=== PATIENT | female | born 1990 | race Caucasian/White ===

== ENCOUNTER 2016-10-09 14:36 | Emergency (ER) | payer OTHER ==
[2016-10-09] MEDS ORDERED: Sodium Chloride 0.9% 1,000 ML IV ONE (14:50)
[2016-10-09] MEDS ORDERED: Ondansetron 4 MG/2 ML SDV IVPUSH ONE (14:59)
[2016-10-09 15:23] LABS: CHLORIDE,CL 106 mmol/L (98-110); SODIUM,NA 137 mmol/L (136-146)
--- NOTE | 2016-10-09 16:00 | EDM.PDOC ---
ED HPI GENERAL MEDICAL PROBLEM - General Chief Complaint: General Stated Complaint: VOMITING,DIARRHEA,ABDOMINAL PAIN Time Seen by Provider: 10/09/16 14:45 Source of Information: Reports: Patient History Limitations: Reports: No Limitations - History of Present Illness INITIAL COMMENTS - FREE TEXT/NARRATIVE: History of present illness: [26 year-old female comes in complaining of right sided upper quadrant pain. Patient indicates that she has a history of gallstones and now she has been running a fever, had nausea, vomiting and diarrhea.] Review of systems: As per history of present illness and below otherwise all systems reviewed and negative. Past medical history: As per history of present illness and as reviewed below otherwise noncontributory. Surgical history: As per history of present illness and as reviewed below otherwise noncontributory. Social history: No reported history of drug or alcohol abuse. Family history: As per history of present illness and as reviewed below otherwise noncontributory. Physical exam: HEENT: Atraumatic, normocephalic, pupils reactive, negative for conjunctival pallor or scleral icterus, mucous membranes moist, throat clear, neck supple, nontender, trachea midline. Lungs: Clear to auscultation, breath sounds equal bilaterally, chest nontender. Heart: S1S2, regular, negative for clicks, rubs, or JVD. Abdomen: Soft, nondistended, with a mild amount of tenderness and guarding noted to right upper quadrant along the diaphragmatic border. Negative for masses or hepatosplenomegaly. Negative for costovertebral tenderness. Pelvis: Stable nontender. Genitourinary: Deferred. Rectal: Deferred. Extremities: Atraumatic, negative for cords or calf pain. Neurovascular unremarkable. Neuro: Awake, alert, oriented. Cranial nerves II through XII unremarkable. Cerebellum unremarkable. Motor and sensory unremarkable throughout. Exam nonfocal. Ultrasound obtained that showed mild cholecystitis with stones without obstruction. Dr. Dunn consulted indicated that in light of the patient's stable condition he recommended antibiotics pain management and follow-up in the office. Diagnostics: [CBC, CMP, lipase, amylase, gallbladder ultrasound] Therapeutics: [IV fluid, morphine] Impression: [Cholecystitis] Plan: [Cipro, tramadol, follow-up surgery] Definitive disposition and diagnosis as appropriate pending reevaluation and review of above. 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: - Infectious Disease History Infectious Disease History: Reports: Chicken Pox - Past Surgical History HEENT Surgical History: Reports: Oral Surgery, Tonsillectomy Dermatological Surgical History: Reports: Other (See Below) Social & Family History - Family History HEENT: Reports: Impaired Vision Cardiac: Reports: Hypertension, [place] Respiratory: Reports: Asthma : Reports: Dialysis OBGYN: Reports: Endometriosis, Musculoskeletal: Reports: Arthritis, Fibromyalgia Endocrine/Metabolic: Reports: Diabetes, Type I Oncologic: Reports: Lung - Tobacco Use Smoking Status *Q: Never Smoker Second Hand Smoke Exposure: No - Caffeine Use Caffeine Use: Reports: Coffee - Recreational Drug Use Recreational Drug Use: No ED ROS GENERAL - Review of Systems Review Of Systems: See Below (See history of present illness) ED EXAM, GENERAL - Physical Exam Exam: See Below (History of present illness) Course - Vital Signs Last Recorded V/S: Last Vital Signs Temp 36.8 C 10/09/16 17:36 Pulse 95 10/09/16 17:36 Resp 18 10/09/16 17:36 BP 134/66 10/09/16 17:36 Pulse Ox 97 10/09/16 17:36 - Orders/Labs/Meds Orders: Active Orders 24 hr Category Date Time Status Gallbladder [Abdomen Ltd] [US] Stat Exams 10/09/16 16:00 Taken UA W/MICROSCOPIC [URIN] Stat Lab 10/09/16 14:50 Uncollected Labs: Laboratory Tests 10/09/16 10/09/16 10/09/16 Range/Units 14:55 14:55 14:55 WBC 7.23 (4.0-11.0) K/uL RBC 4.70 (4.30-5.90) M/uL Hgb 13.7 (12.0-16.0) g/dL Hct 42.1 (36.0-46.0) % MCV 89.6 (80.0-98.0) fL MCH 29.1 (27.0-32.0) pg MCHC 32.5 (31.0-37.0) g/dL RDW Std Deviation 42.5 (28.0-62.0) fl RDW Coeff of Luis Angel 13 (11.0-15.0) % Plt Count 199 (150-400) K/uL MPV 9.40 (7.40-12.00) fL Neut % (Auto) 87.7 H (48.0-80.0) % Lymph % (Auto) 7.5 L (16.0-40.0) % Hoke % (Auto) 4.3 (0.0-15.0) % Eos % (Auto) 0.4 (0.0-7.0) % Baso % (Auto) 0.1 (0.0-1.5) % Neut # (Auto) 6.3 H (1.4-5.7) K/uL Lymph # (Auto) 0.5 L (0.6-2.4) K/uL Hoke # (Auto) 0.3 (0.0-0.8) K/uL Eos # (Auto) 0.0 (0.0-0.7) K/uL Baso # (Auto) 0.0 (0.0-0.1) K/uL Nucleated RBC % 0.0 /100WBC Nucleated RBCs # 0 K/uL Sodium 137 (136-146) mmol/L Potassium 3.6 (3.5-5.1) mmol/L Chloride 106 (98-110) mmol/L Carbon Dioxide 20 L (21-31) mmol/L BUN 16 (6.0-23.0) mg/dL Creatinine 0.8 (0.6-1.5) mg/dL Est Cr Clr Drug Dosing 103.63 mL/min Estimated GFR (MDRD) > 60.0 ml/min Glucose 79 (60-110) mg/dL Calcium 8.6 L (8.8-10.8) mg/dL Total Bilirubin 0.6 (0.1-1.5) mg/dL AST 19 (5-40) IU/L ALT 16 (8-54) IU/L Alkaline Phosphatase 82 (40-150) Total Protein 7.7 (6.0-8.0) g/dL Albumin 4.7 (3.5-5.0) g/dL Globulin 3.0 (2.0-3.5) g/dL Albumin/Globulin Ratio 1.6 (1.3-2.8) HCG, Qual NEGATIVE (NEG) Meds: Medications Discontinued Medications Generic Name Dose Route Start Last Admin Trade Name Donalq PRN Reason Stop Dose Admin Sodium Chloride 1,000 mls @ 999 mls/hr 10/09/16 14:50 10/09/16 14:57 Normal Saline IV 10/09/16 15:50 999 mls/hr STAT ONE Administration Ketorolac Tromethamine 30 mg 10/09/16 16:04 10/09/16 16:47 Toradol IVPUSH 10/09/16 16:05 Not Given ONETIME ONE Morphine Sulfate 4 mg 10/09/16 16:10 10/09/16 16:17 Morphine IVPUSH 10/09/16 16:11 2 mg ONETIME ONE Administration Ondansetron HCl 8 mg 10/09/16 14:59 10/09/16 15:04 Zofran IVPUSH 10/09/16 15:00 8 mg ONETIME ONE Administration Departure - Departure Time of Disposition: 17:55 Disposition: Home, Self-Care 01 Condition: Good Clinical Impression: Cholecystitis - Discharge Information Prescriptions: Ciprofloxacin [Ciprofloxacin HCl] 500 mg PO BID #14 tablet traMADol [Ultram] 50 mg PO Q8H #30 tablet Additional Instructions: The following information is given to patients seen in the emergency department who are being discharged to home. This information is to outline your options for follow-up care. We provide all patients seen in our emergency department with a follow-up referral. The need for follow-up, as well as the timing and circumstances, are variable depending upon the specifics of your emergency department visit. If you don't have a primary care physician on staff, we will provide you with a referral. We always advise you to contact your personal physician following an emergency department visit to inform them of the circumstance of the visit and for follow-up with them and/or the need for any referrals to a consulting specialist. The emergency department will also refer you to a specialist when appropriate. This referral assures that you have the opportunity for follow-up care with a specialist. All of these measure are taken in an effort to provide you with optimal care, which includes your follow-up. Under all circumstances we always encourage you to contact your private physician who remains a resource for coordinating your care. When calling for follow-up care, please make the office aware that this follow-up is from your recent emergency room visit. If for any reason you are refused follow-up, please contact the [facility] Emergency Department at and asked to speak to the emergency department charge nurse. Take medication as directed As indicated it would be beneficial for you to pump and dump while on these various medications Follow-up with surgery as instructed [facility] - General Surgery Professional Building [address] [place] [address], [address] [place] [address] - My Orders Last 24 Hours: My Active Orders 10/09/16 14:50 UA W/MICROSCOPIC [URIN] Stat 10/09/16 16:00 Gallbladder [Abdomen Ltd] [US] Stat - Assessment/Plan Last 24 Hours: My Active Orders 10/09/16 14:50 UA W/MICROSCOPIC [URIN] Stat 10/09/16 16:00 Gallbladder [Abdomen Ltd] [US] Stat
[2016-10-09] MEDS ORDERED: Ketorolac 30 MG/ML SDV IVPUSH ONE (16:04)
[2016-10-09] MEDS ORDERED: Morphine 2 MG/ML Syringe IVPUSH ONE (16:10)
[2016-10-09 18:19] VITALS: BP 120/57
--- NOTE | 2016-10-10 10:23 | US ---
EXAM DATE: 10/09/16 PATIENT'S AGE: 26 Patient: COLTEN TORRES Facility: [place], [place] Site . Site : 1990 Study: US Abdomen [id number]/13/2017 5:16:04 PM Ordering Physician: Doctor Blankenship Final Report: INDICATION: abd pain n/v LIMITED ABDOMEN ULTRASOUND Technique: Multiple sonographic images were performed over the right upper quadrant. Findings: The gallbladder contains multiple shadowing echogenic foci consistent with gallstones. There was a positive sonographic Hammonds`s sign, according to the technologist. There is a question of mild gallbladder wall thickening. No pericholecystic fluid is seen. No intrahepatic biliary dilatation is seen and the common bile duct is normal in caliber, measuring 3 mm in diameter. The visualized portions of the liver, pancreas, and right kidney are unremarkable. IMPRESSION: Cholelithiasis. Positive sonographic Hammonds sign and question of mild gallbladder wall thickening, possibly representing cholecystitis. MORGAN TUCKER MD [employer] Dictated by Roberto Carlos Tucker MD @ 10/09/2016 5:36:56 PM Dictated by: Roberto Carlos Tucker MD @ 10/09/2016 17:37:08 (Electronic Signature) Report Signed by Proxy. MI
== END 2016-10-09 18:17 | disposition home or self-care (01) ==
LOC: MW.ED 14:36
DX: K80.10 Calculus of gallbladder with chronic cholecystitis without obstruction (principal); Z98.890 Other specified postprocedural states
CPT/HCPCS: 36415; 76705; 80053; 84703; 85025; 96361; 96374; 96375; 99284; J2270; J2405; J7040

== ENCOUNTER 2016-10-25 06:29 | Day surgery (SDC) | payer OTHER ==
[~2016-10-25 06:29] MED LIST: Lactated Ringers 1,000 ML IV SCH; Sodium Chloride 0.9% 10 ML Syringe FLUSH PRN; Sodium Chloride 0.9% 2.5 ML Syringe FLUSH PRN; ceFAZolin 1 GM in Premix Bag 1 BAG IV ONE
[2016-10-25] MEDS ORDERED: Scopolamine 1.5 MG Transdermal Patch TOP ONE (07:03)
[2016-10-25] MEDS ORDERED: Bupivacaine 0.5% 30 ML SDV ONE (07:21)
[2016-10-25] MEDS ORDERED: Lidocaine 2% 5 ML SDV ONE (07:26)
[2016-10-25] MEDS ORDERED: Propofol 200 MG/20 ML SDV ONE (07:26)
[2016-10-25] MEDS ORDERED: Neostigmine Methylsulfate 1 MG/ML 5 ML Syringe ONE (07:27)
[2016-10-25] MEDS ORDERED: Ketorolac 30 MG/ML SDV ONE (07:27)
[2016-10-25] MEDS ORDERED: Rocuronium 10 MG/ML 10 ML Syringe ONE (07:27)
[2016-10-25] MEDS ORDERED: Midazolam 1 MG/ML 2 ML SDV ONE (07:27)
[2016-10-25] MEDS ORDERED: Ondansetron 4 MG/2 ML SDV ONE ×2 (07:27→08:34)
[2016-10-25] MEDS ORDERED: fentaNYL 250 MCG/5 ML SDV ONE (07:27)
[2016-10-25] MEDS ORDERED: Scopolamine 1.5 MG Transdermal Patch TRDERM PRN (07:31)
--- NOTE | 2016-10-25 07:31 | PCM.PREANE ---
Preanesthetic Assessment - Anesthesia/Transfusion/Family Hx Anesthesia History: Prior Anesthesia Without Reaction Family History of Anesthesia Reaction: No Transfusion History: No Prior Transfusion(s) - Review of Systems General: No Symptoms Pulmonary: No Symptoms Cardiovascular: No Symptoms Gastrointestinal: No symptoms Neurological: No Symptoms Other: Reports: None - Physical Assessment NPO Status Date: 10/24/16 NPO Status Time: 20:30 O2 Sat by Pulse Oximetry: 97 Respiratory Rate: 16 Vital Signs: Last Vital Signs Temp 36.7 C 10/25/16 06:36 Pulse 106 H 10/25/16 06:36 Resp 16 10/25/16 06:36 BP 146/77 H 10/25/16 06:36 Pulse Ox 97 10/25/16 06:36 Height: 1.7 m Weight: 73.8 kg ASA Class: 2 Mental Status: Alert & Oriented x3 Dentition: Reports: Normal Dentition ROM/Head Extension: Full Lungs: Clear to auscultation, Normal respiratory effort Cardiovascular: Regular Rate (soft systoli murmur 1/vi), Regular Rhythm - Lab Values: Laboratory Last Values Urine HCG, Qual NEGATIVE (NEGATIVE) 10/25/16 06:29 - Allergies Allergies/Adverse Reactions: Allergies Allergy/AdvReac Type Severity Reaction Status Date / Time No Known Allergies Allergy Verified 10/09/16 14:45 - Anesthesia Plan Pre-Op Medication Ordered: None - Acknowledgements Anesthesia Type Planned: General Anesthesia Pt an Appropriate Candidate for the Planned Anesthesia: Yes Alternatives and Risks of Anesthesia Discussed w Pt/Guardian: Yes Pt/Guardian Understands and Agrees with Anesthesia Plan: Yes PreAnesthesia Questionnaire - Past Health History Medical/Surgical History: Denies Medical/Surgical History HEENT History: Reports: Impaired Vision Other HEENT History: wears glasses/contacts Cardiovascular History: Reports: Other (See Below) Other Cardiovascular History: murmur as a child Gastrointestinal History: Reports: Cholelithiasis, GERD 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: - Infectious Disease History Infectious Disease History: Reports: Chicken Pox - Past Surgical History Head Surgeries/Procedures: Reports: None HEENT Surgical History: Reports: Oral Surgery, Tonsillectomy Other Cardiovascular Surgeries/Procedures: Heart murmur stated diagnosed at 4 years old Dermatological Surgical History: Reports: Other (See Below) - SUBSTANCE USE Smoking Status *Q: Never Smoker Tobacco Use Within Last Twelve Months: No Second Hand Smoke Exposure: No Recreational Drug Use History: No - HOME MEDS Home Medications: Home Meds Probiotic 1 tab PO DAILY 10/22/16 [History] - CURRENT (IN HOUSE) MEDS Current Meds: Current Medications Lactated Ringer's (Ringers, Lactated) 1,000 mls @ 125 mls/hr IV ASDIRECTED LISA Last Admin: 10/25/16 06:50 Dose: 125 mls/hr Sodium Chloride (Saline Flush) 10 ml FLUSH ASDIRECTED PRN PRN Reason: Keep Vein Open Sodium Chloride (Saline Flush) 2.5 ml FLUSH ASDIRECTED PRN PRN Reason: Keep Vein Open Discontinued Medications Bupivacaine HCl (Marcaine 0.5%) Confirm Administered Dose 30 ml .ROUTE .STK-MED ONE Stop: 10/25/16 07:22 Fentanyl (Sublimaze) Confirm Administered Dose 250 mcg .ROUTE .STK-MED ONE Stop: 10/25/16 07:28 Glycopyrrolate () Confirm Administered Dose 1 mg .ROUTE .STK-MED ONE Stop: 10/25/16 07:28 Cefazolin Sodium/Dextrose 1 gm (/ Premix) 50 mls @ 100 mls/hr IV ONETIME ONE Stop: 10/23/16 09:11 Cefazolin Sodium/Dextrose (Ancef) Confirm Administered Dose 50 mls @ as directed .ROUTE .STK-MED ONE Stop: 10/25/16 07:26 Ketorolac Tromethamine (Toradol) Confirm Administered Dose 30 mg .ROUTE .STK- MED ONE Stop: 10/25/16 07:28 Lidocaine (Xylocaine-Mpf 2%) Confirm Administered Dose 10 ml .ROUTE .STK-MED ONE Stop: 10/25/16 07:27 Midazolam HCl (Versed 1 Mg/Ml) Confirm Administered Dose 2 mg .ROUTE .STK-MED ONE Stop: 10/25/16 07:28 Neostigmine Methylsulfate (Neostigmine) Confirm Administered Dose 5 mg .ROUTE .STK-MED ONE Stop: 10/25/16 07:28 Ondansetron HCl (Zofran) Confirm Administered Dose 4 mg .ROUTE .STK-MED ONE Stop: 10/25/16 07:28 Propofol (Diprivan 20 Ml) Confirm Administered Dose 400 mg .ROUTE .STK-MED ONE Stop: 10/25/16 07:27 Rocuronium Warren (Zemuron) Confirm Administered Dose 100 mg .ROUTE .STK-MED ONE Stop: 10/25/16 07:28 Scopolamine (Transderm-Scop) 1.5 mg TOP ONETIME ONE Stop: 10/25/16 07:04 Last Admin: 10/25/16 07:09 Dose: 1.5 mg
[2016-10-25] MEDS ORDERED: HYDROmorphone 2 MG/ML Syringe ONE (07:33)
[2016-10-25] MEDS ORDERED: fentaNYL 100 MCG/2 ML SDV ONE (08:03)
[2016-10-25] MEDS ORDERED: ePHEDrine 50 MG/ML SDV ONE (08:12)
[2016-10-25] MEDS ORDERED: fentaNYL 100 MCG/2 ML SDV IVPUSH PRN (08:40)
--- NOTE | 2016-10-25 09:22 | PCM.OPNOTE ---
- General Post-Op/Procedure Note Date of Surgery/Procedure: 10/25/16 Operative Procedure(s): Laparoscopic cholecystectomy Findings: Grossly normal appearing gallbladder Pre Op Diagnosis: Symptomatic cholelithiasis Post-Op Diagnosis: same Anesthesia Technique: General ET tube Primary Surgeon: Mariaa Diez Fluid Replacement, Intraop: 1,500 Output, Urine Amount: 45 EBL in mLs: 10 Condition: Good
--- NOTE | 2016-10-25 10:59 | PCM.POSTAN ---
POST ANESTHESIA ASSESSMENT - MENTAL STATUS Mental Status: alert, oriented - RESPIRATORY Respiratory Status: respiratory rate WNL, airway patent, O2 saturation stable - CARDIOVASCULAR CV Status: pulse rate WNL, blood pressure stable - GASTROINTESTINAL GI Status: no symptoms - PAIN Pain Score: 0 - POST OP HYDRATION Hydration Status: adequate & stable
--- NOTE | 2016-10-25 11:05 | OR ---
SURGEON: IRVING SANTANA MD DATE OF PROCEDURE: 10/25/2016 PREOPERATIVE DIAGNOSIS: Symptomatic cholelithiasis. POSTOPERATIVE DIAGNOSIS: Symptomatic cholelithiasis. PROCEDURE PERFORMED: Laparoscopic cholecystectomy. ANESTHESIA: General endotracheal anesthesia. FLUIDS: 1500 mL crystalloid. URINE OUTPUT: 45 mL. ESTIMATED BLOOD LOSS: 10 mL. FINDINGS: Grossly normal-appearing gallbladder. COMPLICATIONS: None. INDICATIONS: The patient is a 26-year-old female, who developed biliary colic secondary to gallstones during her . After she gave , the symptoms improved and the patient decided to not undergo surgery. Several weeks ago, the patient presented to the emergency room with acute onset of right upper quadrant pain. Followup ultrasound showed cholelithiasis with no evidence of cholecystitis. The patient came to see me in clinic and desires removal of her gallbladder. We discussed the laparoscopic and open approach to cholecystectomy. Should I be unable to perform it safely laparoscopically, we will convert to open. The patient and I discussed the procedure and expected perioperative course. We discussed the risks, including bleeding, infection, and damage to surrounding structures. The patient verbalized understanding and wished to proceed. PROCEDURE IN DETAIL: The patient was brought to the operating room and placed on the OR table in the supine position. A time-out was completed verifying the patient's name, age, date of , allergies, and procedure to be performed. General endotracheal anesthesia was induced. The left arm was tucked to the patient's side and a Villareal catheter was placed. The abdomen was prepped and draped in the usual standard fashion. I started by anesthetizing the infraumbilical fold with 0.5% Marcaine plain. An #11 blade was brought in and I made a horizontal incision along the infraumbilical fold. The cautery was used to dissect down into the subcutaneous fat and to provide hemostasis. S-retractors were used to dissect down to the level of the fascia. The fascia was grasped with 2 Kochers and incised along the midline. I then grasped the peritoneum with a hemostat and incised with the Metzenbaum scissors. An 0 Vicryl suture was then used to place a [id number] stitch within the fascia to allow for closure at the end of the case. A 12 mm blunt trocar was then inserted in the abdomen and the abdomen allowed to insufflate. A 5 mm 30-degree scope was inserted in the abdomen and I inspected the area underneath my incision site. There was no evidence of damage to any surrounding structures. Three more trocars were then placed under direct visualization in the following locations, one in the epigastric area, one along the right subcostal margin in the midclavicular line, and one along the right flank. The patient was then placed into reverse Trendelenburg position. An atraumatic grasper was used to grasp the dome of the gallbladder and lifted above the dome of the liver. There were no peritoneal attachments of the gallbladder to any surrounding tissue. The gallbladder appeared grossly normal with no evidence of acute inflammation. The infundibulum was grasped with an atraumatic grasper through the midclavicular port and pulled laterally. This exposed the infundibulum and its overlying peritoneum. This was incised using hook cautery. I then bluntly dissected the area with a [place] dissector and suctioned. This adequately exposed the cystic artery and duct. I carried my dissection one half of the cystic plate to ensure my critical view. The cystic duct and artery were doubly clipped and ligated. The gallbladder was then removed from the remainder of the gallbladder fossa using electrocautery. The gallbladder was placed in an EndoCatch bag and removed from the abdomen through the infraumbilical port site. The 12 mm port was then reinserted into the abdomen. I inspected the gallbladder fossa and there was no evidence of bleeding. The clips appeared to be in good position with no evidence of bile leak or bleeding. All the trocars were removed under direct visualization and no bleeding was noted. The abdomen was allowed to desufflate and I removed the 12 mm trocar. The [id number] stitch that was placed in the fascia was then tied down, which effectively closed the fascial defect. I closed the infraumbilical port site with interrupted 3-0 Vicryl in the subcutaneous fat and a running 4-0 Monocryl stitch in the subcuticular space. The 5 mm trocar sites were closed with interrupted Monocryl suture. Steri-Strips and sterile dressings were applied. All counts were complete and correct at the end of the case. The patient tolerated procedure well and was taken to the PACU in stable condition. CARLITOS BURHC /[id number]
--- NOTE | 2016-10-25 11:07 | PCM48HPAN ---
Post Anesthesia Note - EVALUATION WITHIN 48HRS OF ANESTHETIC Vital Signs in Normal Range: Yes Patient Participated in Evaluation: Yes Respiratory Function Stable: Yes Airway Patent: Yes Cardiovascular Function Stable: Yes Hydration Status Stable: Yes Pain Control Satisfactory: Yes Nausea and Vomiting Control Satisfactory: Yes Mental Status Recovered: Yes
[2016-10-25 13:56] VITALS: BP 115/67
== END 2016-10-25 13:20 | disposition home or self-care (01) ==
LOC: MW.SDS 06:29
PROVIDERS: ATTEND Surgery
PROC: 0FT44ZZ Resection of Gallbladder, Percutaneous Endoscopic Approach (ICD-10-PCS; principal; 2016-10-25)
DX: K80.10 Calculus of gallbladder with chronic cholecystitis without obstruction (principal); Z90.89 Acquired absence of other organs; Z98.890 Other specified postprocedural states; Z79.899 Other long term (current) drug therapy
CPT/HCPCS: 47562; 81025; A9270; J0690; J1170; J1885; J2250; J2405; J3010; J7120; 00790; 88304; J2704

== ENCOUNTER 2022-08-03 10:52 | Inpatient (IN) | payer OTHER ==
[2022-08-03] MEDS ORDERED: ePHEDrine 50 MG/ML SDV IVPUSH PRN ×2 (11:39)
[2022-08-03] MEDS ORDERED: Phenylephrine HCl 0.5 MG/5 ML AMP IVPUSH PRN (11:39)
[2022-08-03] MEDS ORDERED: Ropivacaine HCl/PF 400 MG in Premix Bag 1 BAG EPIDUR SCH (11:45)
[2022-08-03] MEDS ORDERED: Ampicillin 2 GM in Sodium Chloride 0.9% 100 ML IV ONE (12:00)
[2022-08-03] MEDS ORDERED: Lidocaine 1% 50 ML MDV INJECT PRN (12:09)
[2022-08-03] MEDS ORDERED: Tranexamic Acid 1,000 MG in Sodium Chloride 0.9% 100 ML IV PRN (12:09)
[2022-08-03] MEDS ORDERED: Ondansetron 4 MG/2 ML SDV IVPUSH PRN (12:09)
[2022-08-03] MEDS ORDERED: Sodium Chloride 0.9% 10 ML Syringe FLUSH PRN (12:09)
[2022-08-03] MEDS ORDERED: Sodium Chloride 0.9% 2.5 ML Syringe FLUSH PRN (12:09)
[2022-08-03] MEDS ORDERED: Misoprostol 200 MCG Tab PO PRN (12:09)
[2022-08-03] MEDS ORDERED: Carboprost Tromethamine 250 MCG/1 ML Amp IM PRN (12:09)
[2022-08-03] MEDS ORDERED: Water For Irrigation,Sterile 1,000 ML Container IRR PRN (12:09)
[2022-08-03] MEDS ORDERED: Methylergonovine 0.2 MG/1 ML Amp IM PRN (12:09)
[2022-08-03] MEDS ORDERED: Sodium Chloride 0.9% 20 ML SDV IV PRN (12:09)
[2022-08-03] MEDS ORDERED: Butorphanol 1 MG/ML SDV IVPUSH PRN (12:09)
[2022-08-03] MEDS ORDERED: Lactated Ringers 1,000 ML IV SCH (12:15)
[2022-08-03] MEDS ORDERED: Oxytocin/0.9 % Sodium Chloride 30 UNIT/500 ML BAG IV SCH (12:15)
[2022-08-03 13:15] LABS: CARBON DIOXIDE,CO2 18.7 mmol/L (21.0-32.0); POTASSIUM,K 4.3 mmol/L (3.5-5.1)
[2022-08-03] MEDS ORDERED: Dexmedetomidine 200 MCG/2 ML SDV ONE (15:31)
[2022-08-03] MEDS ORDERED: Ampicillin 1 GM in Sodium Chloride 0.9% 50 ML IV SCH (16:00)
[2022-08-03] MEDS ORDERED: Ibuprofen 400 MG Tab PO PRN (18:54)
[2022-08-03] MEDS ORDERED: Acetaminophen 500 MG Tab PO PRN ×2 (18:54)
[2022-08-03] MEDS ORDERED: oxyCODONE 5 MG Tab PO PRN (18:54)
[2022-08-03] MEDS ORDERED: Witch Hazel Medicated Pads 40/Jar TOP PRN (18:54)
[2022-08-03] MEDS ORDERED: Benzocaine/Menthol 20%-0.5% Spray 78 GM Cannister TOP PRN (18:54)
[2022-08-03] MEDS ORDERED: Lanolin 100% Cream 7 GM Tube TOP PRN (18:54)
[2022-08-03] MEDS ORDERED: Docusate Sodium 100 MG Cap PO PRN (18:54)
[2022-08-03] MEDS ORDERED: Bisacodyl 10 MG Supp RECTAL PRN (18:54)
[2022-08-04] MEDS: Ibuprofen 800 MG Tab PO PRN ×2 (02:07→09:44)
[2022-08-05 08:12] VITALS: BP 131/73; PULSE 61
== END 2022-08-05 16:12 | disposition home or self-care (01) | DRG 807 ==
LOC: MW.OBCHECK 10:52 → MW.OB 11:06 → MW.OBCHECK 16:22 → OBSVTOIN 18:21 → MW.OB 22:56
PROVIDERS: ADMIT Obstetrics & Gynecology; ATTEND Obstetrics & Gynecology
PROC: 10E0XZZ Delivery of Products of Conception, External Approach (ICD-10-PCS; principal; 2022-08-03)
PROC: 0KQM0ZZ Repair Perineum Muscle, Open Approach (ICD-10-PCS; 2022-08-03)
PROC: 3E0R3BZ Introduction of Anesthetic Agent into Spinal Canal, Percutaneous Approach (ICD-10-PCS; 2022-08-03)
PROC: 00HU33Z Insertion of Infusion Device into Spinal Canal, Percutaneous Approach (ICD-10-PCS; 2022-08-03)
DX: O48.0 Post-term pregnancy (principal); Z37.0 Single live birth; O13.4 Gestational [pregnancy-induced] hypertension without significant proteinuria, complicating childbirth; O99.824 Streptococcus B carrier state complicating childbirth; O42.02 Full-term premature rupture of membranes, onset of labor within 24 hours of rupture; O36.63X0 Maternal care for excessive fetal growth, third trimester, not applicable or unspecified; O76 Abnormality in fetal heart rate and rhythm complicating labor and delivery; O69.81X0 Labor and delivery complicated by cord around neck, without compression, not applicable or unspecified; O70.1 Second degree perineal laceration during delivery; Z90.49 Acquired absence of other specified parts of digestive tract; Z3A.40 40 weeks gestation of pregnancy; Z98.890 Other specified postprocedural states
CPT/HCPCS: 36415; 51702; 59025; 59409; 80053; 82570; 82803; 84112; 84156; 84550; 85014; 85018; 85027; 86592; 86850; 86900; 86901; A9270-GY; J0290; J2590; J3490; J7120